=== PATIENT | female | born 1955 | race Caucasian/White ===

== ENCOUNTER → 2017-08-11 | Outpatient (CLI) | payer BC ==
[~2017-08-11] MED LIST: LYRICA50 MG PO; MALARONE 250 MG1 TAB; NORCO 325 MG-51 TAB PO; PEN-V500 MG PO; [UNRECOGNIZED DRUG - OTHER]
== END ==
LOC: BHSO 13:20
DX: F41.1 Generalized anxiety disorder (principal)

== ENCOUNTER → 2017-12-06 | Outpatient (CLI) | payer BC | LOC: MC.RAD 11:15 | DX: Z12.31 Encounter for screening mammogram for malignant neoplasm of breast (principal) ==

== ENCOUNTER → 2019-03-16 | Outpatient (CLI) | payer BC | LOC: MC.RAD 14:29 | DX: Z12.31 Encounter for screening mammogram for malignant neoplasm of breast (principal) ==

== ENCOUNTER 2019-09-04 07:04 | Day surgery (SDC) | payer BC ==
[~2019-09-04] VITALS: Ht 162.6 cm; Wt 70.0 kg
[~2019-09-04 07:04] MED LIST changes: +ATARAX50 MG PO; +LAMICTAL 25MG T25 MG PO; -LYRICA50 MG PO; -MALARONE 250 MG1 TAB; +MULTIPLE VITAMI1 CAP PO; -[UNRECOGNIZED DRUG - OTHER]
[2019-09-04] MEDS ORDERED: CLIMARA 0.1 PATCH.WK TD (07:24)
[2019-09-04 08:06] VITALS: BP 109/68; PULSE 67; TEMP 97.5
[2019-09-04 08:55] VITALS: BP 106/74; PULSE 70; TEMP 97.2
--- NOTE | 2019-09-04 08:55 | NUR ---
Patient arrives back to [facility] [place] drowsy. Ambulates from cart to chair with standby assist x2 without any complications. Patient monitor applied, vitals stable. Patient resting compfortably with spouse at chair side. Patient and spouse educated that patient can rest until more awake to eat and drink.
--- NOTE | 2019-09-04 09:05 | NUR ---
Dr Mccord into see patient and patient's spouse to go over procedure results.
[2019-09-04 09:10] VITALS: BP 108/68; PULSE 63
--- NOTE | 2019-09-04 09:15 | NUR ---
Patient starting to wake up more at this time. Patient given soda and muffin. Vitals stable.
[2019-09-04 09:25] VITALS: BP 111/71; PULSE 62
--- NOTE | 2019-09-04 09:30 | NUR ---
Patient complains of slight nausea at this time. Will give PRN Zofran.
--- NOTE | 2019-09-04 09:45 | NUR ---
Patient reports that she is doing much better now, and that the nausea has gone away. Patient has tolerated soda, denies wanting to eat her muffin. Patient denies pain. Vitals stable.
--- NOTE | 2019-09-04 09:55 | NUR ---
Dismissal instructions gone over with patient and patient's spouse. Both verbalize understanding and all questions answered.
--- NOTE | 2019-09-04 10:00 | NUR ---
Patient dismissed to private vehicle via wheelchair without any complications. Patient and spouse leave thanking staff for services.
[2019-09-04 11:37] VITALS: BP 104/79; PULSE 75
== END 2019-09-04 10:00 | disposition home or self-care (01) ==
LOC: SDCO 07:04
DX: R13.10 Dysphagia, unspecified (principal); K29.70 Gastritis, unspecified, without bleeding; K64.8 Other hemorrhoids; I49.9 Cardiac arrhythmia, unspecified; G51.0 Bell's palsy; Z90.89 Acquired absence of other organs; Z79.899 Other long term (current) drug therapy; Z90.710 Acquired absence of both cervix and uterus; Z80.0 Family history of malignant neoplasm of digestive organs; Z83.79 Family history of other diseases of the digestive system
CPT/HCPCS: J2250; J2405; J3010; J7030

== ENCOUNTER → 2021-01-14 | Outpatient (CLI) | payer MEDICARE, OTHER ==
[~2021-01-14] MED LIST changes: +CLIMARA 0.1 PATCH.WK TD
== END ==
LOC: MC.RAD 12-18 13:00
DX: Z12.31 Encounter for screening mammogram for malignant neoplasm of breast (principal)

== ENCOUNTER 2022-07-08 21:42 | Emergency (ER) | payer MEDICARE, OTHER ==
[~2022-07-08] VITALS: Ht 162.6 cm; Wt 65.9 kg
[2022-07-08 21:46] VITALS: TEMP 98.4
[2022-07-08 23:03] VITALS: BP 123/71; PULSE 91
== END 2022-07-08 23:19 | disposition home or self-care (01) ==
LOC: COL.ER 21:42
DX: S92.425A Nondisplaced fracture of distal phalanx of left great toe, initial encounter for closed fracture (principal); S90.212A Contusion of left great toe with damage to nail, initial encounter; W20.8XXA Other cause of strike by thrown, projected or falling object, initial encounter

== ENCOUNTER → 2022-07-27 | Outpatient (CLI) | payer MEDICARE, OTHER | LOC: MC.RAD 10:50 | DX: Z12.31 Encounter for screening mammogram for malignant neoplasm of breast (principal) ==